=== PATIENT | female | born 1985 | race Caucasian/White ===

== ENCOUNTER → 2017-09-10 | Outpatient (CLI) | payer OTHER ==
[~2017-09-10] MED LIST: DOCU-131 PO; IBUP-1222 PO; OXYC-302 PO
[2017-09-10 13:28] LABS: HEMATOCRIT 40.4 % (34.6-47.8); HEMOGLOBIN 13.7 g/dL (11.7-16.4); WHITE BLOOD COUNT 9.4 x10^3/uL (3.4-10)
[2017-09-10 14:02] LABS: HIV 1&2 ANTIBODY SCREEN Nonreactive (Nonreactive); HIV-1 p24 ANTIGEN Nonreactive (Nonreactive)
== END ==
LOC: LAB 13:09
PROVIDERS: ATTEND Obstetrics & Gynecology Maternal & Fetal Medicine
DX: Z34.81 Encounter for supervision of other normal pregnancy, first trimester (principal)
CPT/HCPCS: 36415; 85025; 86592; 86703; 86762; 86850; 86900; 87086; 87340; 87899; G0435

== ENCOUNTER → 2017-12-13 | Outpatient (CLI) | payer OTHER ==
[2017-12-13 07:39] LABS: BASOPHILS # (AUTO) 0.07 x10^3/uL (0-0.1); BASOPHILS % (AUTO) 1 % (0-1); EOSINOPHILS # (AUTO) 0.16 x10^3/uL (0-0.4); EOSINOPHILS % (AUTO) 2 % (1-7); LYMPHOCYTES # (AUTO) 1.82 x10^3/uL (1-3.4); LYMPHOCYTES % (AUTO) 19 % (22-44); MD NO; MEAN CORPUSCULAR HEMOGLOBIN 30.5 pg (27.0-34.8); MEAN CORPUSCULAR HGB CONC 33.1 g/dL (32.4-35.8); MEAN PLATELET VOLUME 8.4 fL (7.4-10.4); MONOCYTES # (AUTO) 0.49 x10^3/uL (0.2-0.8); MONOCYTES % (AUTO) 5 % (2-9); NEUTROPHILS # (AUTO) 7.16 x10^3/uL (1.8-6.8); NEUTROPHILS % (AUTO) 74 % (42-75); PLATELET COUNT 223 x10^3/uL (130-400); RED BLOOD COUNT 4.48 x10^6/uL (3.82-5.3); RED CELL DISTRIBUTION WIDTH 14.1 % (9.6-15.2)
== END | disposition home or self-care (01) ==
LOC: LAB 07:21
PROVIDERS: ATTEND Obstetrics & Gynecology Maternal & Fetal Medicine
DX: Z34.82 Encounter for supervision of other normal pregnancy, second trimester (principal); Z3A.00 Weeks of gestation of pregnancy not specified
CPT/HCPCS: 36415; 82950; 85025

== ENCOUNTER 2017-12-26 20:53 | Outpatient (CLI) | payer OTHER ==
[~2017-12-26] VITALS: Ht 172.7 cm; Wt 77.3 kg
[2017-12-26 20:56] VITALS: BP 126/89
[2017-12-26] MEDS ORDERED: TERBUTALINE 1 MG/ML, 1ML ONE (21:18)
[2017-12-26] MEDS ORDERED: TERBUTALINE 1 MG/ML, 1ML SQ ONE (21:30)
[2017-12-26] MEDS ORDERED: PREN1TAB60 PO (22:15)
[2017-12-26] MEDS ORDERED: VALA500T4 PO (22:16)
== END 2017-12-26 22:41 | disposition home or self-care (01) ==
LOC: LDOP 20:53
PROVIDERS: ATTEND Obstetrics & Gynecology Maternal & Fetal Medicine
DX: O46.92 Antepartum hemorrhage, unspecified, second trimester (principal); Z3A.27 27 weeks gestation of pregnancy
CPT/HCPCS: 59025; 96372; 99211; J3105; G0463

== ENCOUNTER 2018-03-16 05:32 | Inpatient (IN) | payer OTHER ==
[~2018-03-16] VITALS: Ht 172.7 cm; Wt 87.0 kg
[~2018-03-16 05:32] MED LIST changes: +PREN1TAB60 PO; +VALA500T4 PO
[2018-03-16] MEDS ORDERED: LACTATED RINGERS 1,000 ML IV SCH ×3 (05:37→07:33)
[2018-03-16] MEDS ORDERED: OXYTOCIN 30U/ 0.9% NaCL 500ML 500 ML IV SCH (05:37)
[2018-03-16] MEDS ORDERED: SODIUM CITRATE/CITRIC ACID 30 ML UDC PO ONE (06:00)
[2018-03-16] MEDS ORDERED: METOCLOPRAMIDE 5 MG/ML, 2ML IV ONE (06:00)
[2018-03-16] MEDS ORDERED: LACTATED RINGERS 1,000 ML IVBOLUS ONE (06:00)
[2018-03-16 06:03] LABS: BASOPHILS # (AUTO) 0.07 x10^3/uL (0-0.1); BASOPHILS % (AUTO) 1 % (0-1); EOSINOPHILS # (AUTO) 0.08 x10^3/uL (0-0.4); EOSINOPHILS % (AUTO) 1 % (1-7); LYMPHOCYTES # (AUTO) 2.06 x10^3/uL (1-3.4); LYMPHOCYTES % (AUTO) 26 % (22-44); MD NO; MEAN CORPUSCULAR HEMOGLOBIN 30.9 pg (27.0-34.8); MEAN CORPUSCULAR HGB CONC 33.9 g/dL (32.4-35.8); MEAN CORPUSCULAR VOLUME 91.2 fL (80-100); MEAN PLATELET VOLUME 9.3 fL (7.4-10.4); MONOCYTES % (AUTO) 8 % (2-9); NEUTROPHILS # (AUTO) 4.99 x10^3/uL (1.8-6.8); NEUTROPHILS % (AUTO) 64 % (42-75); PLATELET COUNT 181 x10^3/uL (130-400); RED CELL DISTRIBUTION WIDTH 13.8 % (9.6-15.2)
[2018-03-16] MEDS ORDERED: METOCLOPRAMIDE 5 MG/ML, 2ML ONE (06:37)
[2018-03-16] MEDS ORDERED: OXYTOCIN 30U/ 0.9% NaCL 500ML 500 ML ONE (06:37)
[2018-03-16] MEDS ORDERED: FENTANYL PF 100 MCG/2ML ONE (07:12)
[2018-03-16] MEDS ORDERED: ONDANSETRON 2MG/ML, 2ML ONE (07:12)
[2018-03-16] MEDS ORDERED: CEFAZOLIN 1,000 MG ONE (07:12)
[2018-03-16] MEDS ORDERED: OXYTOCIN 10 UNITS/ML, 1ML ONE (07:12)
[2018-03-16] MEDS ORDERED: HYDROmorphone 2 MG/ML, 1ML ONE (07:13)
[2018-03-16] MEDS ORDERED: SODIUM CHLORIDE 0.9% PF 10ML ONE ×2 (07:13)
[2018-03-16] MEDS: OXYTOCIN 30U/ 0.9% NaCL 500ML 500 ML IV SCH ×2 (07:33→17:33)
[2018-03-16] MEDS: LACTATED RINGERS 1,000 ML IV SCH ×2 (07:33→17:33)
[2018-03-16] MEDS ORDERED: CARBOPROST TROMETHAMINE 250 MCG/ML, 1ML IM PRN (08:00)
[2018-03-16] MEDS ORDERED: DIPH,PERTUSS(ACELL),TET VAC/PF NC IM-VACC PRN (08:00)
[2018-03-16] MEDS ORDERED: MISOPROSTOL 200 MCG TABLET PR PRN (08:00)
[2018-03-16] MEDS ORDERED: MEASLES,MUMPS&RUBELLA VACC/PF 0.5 ML SQ-VACC PRN (08:00)
[2018-03-16] MEDS ORDERED: ACETAMINOPHEN 325 MG TABLET PO PRN (08:00)
[2018-03-16] MEDS ORDERED: morphine SULFATE 10 MG/ML, 1ML IVPush PRN ×2 (08:00)
[2018-03-16] MEDS ORDERED: ONDANSETRON 2MG/ML, 2ML IV PRN (08:00)
[2018-03-16] MEDS ORDERED: METHYLERGONOVINE 0.2 MG/ML IM PRN (08:00)
[2018-03-16] MEDS: PRENATAL VIT/IRON/FA 1 EACH TABLET PO SCH (09:00)
[2018-03-16] MEDS ORDERED: KETOROLAC 30 MG/1 ML ONE (09:58)
[2018-03-16] MEDS ORDERED: OXYcodone/APAP 5/325MG TABLET ONE (09:58)
[2018-03-16] MEDS: KETOROLAC 30 MG/1 ML IV SCH ×3 (10:00→22:03)
[2018-03-16] MEDS: OXYcodone/APAP 5/325MG TABLET PO PRN (10:00)
[2018-03-16 11:00] VITALS: BP 114/72
[2018-03-16] MEDS: OXYcodone IR 5MG TABLET PO PRN ×2 (14:34→19:22)
[2018-03-16 16:00] VITALS: BP 126/86
[2018-03-16 16:24] LABS: BASOPHILS # (AUTO) 0.07 x10^3/uL (0-0.1); BASOPHILS % (AUTO) 1 % (0-1); EOSINOPHILS # (AUTO) 0.02 x10^3/uL (0-0.4); EOSINOPHILS % (AUTO) 0 % (1-7); LYMPHOCYTES # (AUTO) 1.83 x10^3/uL (1-3.4); LYMPHOCYTES % (AUTO) 14 % (22-44); MD NO; MEAN CORPUSCULAR HEMOGLOBIN 30.7 pg (27.0-34.8); MEAN CORPUSCULAR VOLUME 93.2 fL (80-100); MEAN PLATELET VOLUME 9.4 fL (7.4-10.4); MONOCYTES # (AUTO) 0.83 x10^3/uL (0.2-0.8); MONOCYTES % (AUTO) 6 % (2-9); NEUTROPHILS # (AUTO) 10.43 x10^3/uL (1.8-6.8); NEUTROPHILS % (AUTO) 79 % (42-75); PLATELET COUNT 163 x10^3/uL (130-400); RED BLOOD COUNT 3.92 x10^6/uL (3.82-5.3); RED CELL DISTRIBUTION WIDTH 13.7 % (9.6-15.2)
[2018-03-16 19:20] VITALS: BP 108/67
[2018-03-16] MEDS: DOCUSATE 100 MG CAPSULE PO PRN (19:22)
[2018-03-17] MEDS: OXYcodone/APAP 5/325MG TABLET PO PRN ×3 (00:24→17:47)
[2018-03-17 00:27] VITALS: BP 116/70
[2018-03-17] MEDS: LACTATED RINGERS 1,000 ML IV SCH ×3 (03:33→23:33)
[2018-03-17] MEDS: OXYTOCIN 30U/ 0.9% NaCL 500ML 500 ML IV SCH ×3 (03:33→23:33)
[2018-03-17] MEDS: SIMETHICONE 80 MG CHEW TAB PO PRN ×4 (03:59→17:48)
[2018-03-17] MEDS: OXYcodone IR 5MG TABLET PO PRN (03:59)
[2018-03-17] MEDS: KETOROLAC 30 MG/1 ML IV SCH ×3 (03:59→15:16)
[2018-03-17 04:00] VITALS: BP 117/74
[2018-03-17 07:45] VITALS: BP 117/79
[2018-03-17] MEDS ORDERED: IBUPROFEN 600 MG TABLET ONE ×3 (09:13→20:41)
[2018-03-17] MEDS: PRENATAL VIT/IRON/FA 1 EACH TABLET PO SCH (09:16)
[2018-03-17] MEDS: DOCUSATE 100 MG CAPSULE PO PRN ×2 (09:17→20:54)
[2018-03-17 20:45] VITALS: BP 111/72
[2018-03-17] MEDS: IBUPROFEN 600 MG TABLET PO PRN (20:54)
[2018-03-18] MEDS: OXYcodone/APAP 5/325MG TABLET PO PRN ×2 (02:00→08:47)
[2018-03-18] MEDS: IBUPROFEN 600 MG TABLET PO PRN ×2 (03:08→08:47)
[2018-03-18 07:45] VITALS: BP 118/75
[2018-03-18] MEDS ORDERED: IBUPROFEN 600 MG TABLET PO PRN ×2 (08:00→09:30)
[2018-03-18] MEDS: DOCUSATE 100 MG CAPSULE PO PRN (08:47)
[2018-03-18] MEDS: PRENATAL VIT/IRON/FA 1 EACH TABLET PO SCH (08:48)
[2018-03-18] MEDS ORDERED: IBUP-1222 PO (09:26)
[2018-03-18] MEDS ORDERED: OXYC-302 PO (09:26)
[2018-03-18] MEDS: OXYTOCIN 30U/ 0.9% NaCL 500ML 500 ML IV SCH (09:33)
[2018-03-18] MEDS: LACTATED RINGERS 1,000 ML IV SCH (09:33)
== END 2018-03-18 10:55 | disposition home or self-care (01) | DRG 766 ==
LOC: LDIP 05:32 → 2NW 10:32
PROVIDERS: ADMIT Obstetrics & Gynecology Maternal & Fetal Medicine; ATTEND Obstetrics & Gynecology Maternal & Fetal Medicine
PROC: 10D00Z1 Extraction of Products of Conception, Low, Open Approach (ICD-10-PCS; principal; 2018-03-16)
DX: O34.211 Maternal care for low transverse scar from previous cesarean delivery (principal); Z37.0 Single live birth; Z3A.39 39 weeks gestation of pregnancy
CPT/HCPCS: 36415; 85025; 86850; 86900; J0690; J1170; J1885; J2405; J3010; J2270; J2590; J2765; J7120

== ENCOUNTER → 2019-03-31 | Outpatient (CLI) | payer OTHER ==
[2019-03-31 08:24] LABS: BASOPHILS # (AUTO) 0.05 x10^3/uL (0-0.1); BASOPHILS % (AUTO) 1 % (0-1); EOSINOPHILS # (AUTO) 0.11 x10^3/uL (0-0.4); EOSINOPHILS % (AUTO) 3 % (1-7); LYMPHOCYTES # (AUTO) 1.46 x10^3/uL (1-3.4); LYMPHOCYTES % (AUTO) 36 % (22-44); MD NO; MEAN CORPUSCULAR HEMOGLOBIN 29.7 pg (27.0-34.8); MEAN CORPUSCULAR HGB CONC 32.8 g/dL (32.4-35.8); MEAN CORPUSCULAR VOLUME 90.6 fL (80-100); MEAN PLATELET VOLUME 8.5 fL (7.4-10.4); MONOCYTES # (AUTO) 0.48 x10^3/uL (0.2-0.8); MONOCYTES % (AUTO) 12 % (2-9); NEUTROPHILS # (AUTO) 1.94 x10^3/uL (1.8-6.8); NEUTROPHILS % (AUTO) 48 % (42-75); PLATELET COUNT 225 x10^3/uL (130-400); RED BLOOD COUNT 4.39 x10^6/uL (3.82-5.3); RED CELL DISTRIBUTION WIDTH 13.5 % (9.6-15.2)
== END | disposition home or self-care (01) ==
LOC: LAB 07:06
PROVIDERS: ATTEND Obstetrics & Gynecology Maternal & Fetal Medicine
DX: Z34.81 Encounter for supervision of other normal pregnancy, first trimester (principal)
CPT/HCPCS: 36415; 82950; 85025; 86592

== ENCOUNTER → 2021-05-22 | Outpatient (CLI) | payer OTHER ==
[~2021-05-22] MED LIST changes: +CETI10TA76 PO; +FLUO10TA PO; +FLUT9.9S NS; +LEMON BALM PO; +NORE1TAB11 PO; -OXYC-302 PO; +OXYC1TAB14 PO
[2021-05-22 14:41] LABS: ANION GAP 6 mmol/L (5-15); CALCIUM 8.8 mg/dL (8.5-10.1); CHLORIDE 110 mmol/L (98-107); CREATININE 0.79 mg/dL (0.55-1.02)
[2021-05-22 14:57] LABS: MEAN CORPUSCULAR HEMOGLOBIN 29.4 pg (27.0-34.8); MEAN CORPUSCULAR HGB CONC 32.4 g/dL (32.4-35.8); MEAN PLATELET VOLUME 8.9 fL (7.4-10.4); PLATELET COUNT 258 x10^3/uL (130-400); RED BLOOD COUNT 4.77 x10^6/uL (3.82-5.3); RED CELL DISTRIBUTION WIDTH 13.3 % (9.6-15.2)
[2021-05-22 14:58] LABS: BASOPHILS % (AUTO) 1 % (0-1); EOSINOPHILS % (AUTO) 3 % (1-7); LYMPHOCYTES % (AUTO) 27 % (22-44); MONOCYTES % (AUTO) 9 % (2-9); NEUTROPHILS % (AUTO) 60 % (42-75)
== END | disposition home or self-care (01) ==
LOC: STAR 13:49
PROVIDERS: ATTEND Obstetrics & Gynecology Maternal & Fetal Medicine
DX: Z01.818 Encounter for other preprocedural examination (principal); N92.0 Excessive and frequent menstruation with regular cycle
CPT/HCPCS: 36415; 80048; 84702; 85025

== ENCOUNTER 2021-05-28 13:31 | Day surgery (SDC) | payer OTHER ==
[~2021-05-28] VITALS: Ht 175.3 cm; Wt 73.2 kg
[2021-05-28 14:08] VITALS: BP 137/89
[2021-05-28 14:28] LABS: HCG UR SG 1.016 (1.003-1.030)
[2021-05-28] MEDS ORDERED: CHLORHEXIDINE 15 ML UDC PO ONE (14:30)
[2021-05-28] MEDS ORDERED: LACTATED RINGERS 1,000 ML IV SCH (15:00)
[2021-05-28] MEDS ORDERED: BUPIVACAINE/PF 0.25% ONE (15:24)
[2021-05-28] MEDS ORDERED: MIDAZOLAM 1 MG/ML, 2ML ONE (15:32)
[2021-05-28] MEDS ORDERED: FENTANYL PF 250 MCG/5ML ONE (15:33)
[2021-05-28] MEDS ORDERED: ROCURONIUM 10MG/ML,5ML ONE (15:34)
[2021-05-28] MEDS ORDERED: DEXAMETHASONE 4 MG/ML, 1ML ONE (15:34)
[2021-05-28] MEDS ORDERED: PROPOFOL 10 MG/ML, 20ML ONE (15:34)
[2021-05-28] MEDS ORDERED: BUPIVACAINE 0.25% INFIL ONE (15:58)
[2021-05-28] MEDS ORDERED: NEOSPORIN OINT, 15GM ONE (16:17)
[2021-05-28] MEDS ORDERED: hydrALAzine 20 MG/ML, 1ML IV PRN (17:00)
[2021-05-28] MEDS ORDERED: DIAZEPAM 5 MG/ML, 2ML IVPush PRN (17:00)
[2021-05-28] MEDS ORDERED: EPHEDRINE 50 MG/ML, 1ML IVPush PRN (17:00)
[2021-05-28] MEDS ORDERED: PROMETHAZINE 25 MG/ML, 1ML IVPush PRN (17:00)
[2021-05-28] MEDS ORDERED: ACETAMINOPHEN 325 MG TABLET PO PRN (17:00)
[2021-05-28] MEDS ORDERED: ALBUTEROL SULFATE 2.5 MG/3 ML NPPB PRN (17:00)
[2021-05-28] MEDS ORDERED: PROMETHAZINE 12.5 MG SUPP PR PRN (17:00)
[2021-05-28] MEDS ORDERED: LORazepam 2 MG/ML, 1ML IVPush PRN (17:00)
[2021-05-28] MEDS ORDERED: DIPHENHYDRAMINE 50 MG/ML, 1ML IVPush PRN ×2 (17:00)
[2021-05-28] MEDS ORDERED: MEPERIDINE/PF 25MG/0.5ML IVPush PRN (17:00)
[2021-05-28] MEDS ORDERED: LABETALOL 5MG/ML, 20ML IV PRN (17:00)
[2021-05-28] MEDS ORDERED: MIDAZOLAM 1 MG/ML, 2ML IV PRN (17:00)
[2021-05-28] MEDS ORDERED: ONDANSETRON 2MG/ML, 2ML IVPush PRN (17:00)
[2021-05-28] MEDS ORDERED: FENTANYL PF 100 MCG/2ML ONE ×2 (17:07→17:42)
[2021-05-28] MEDS: FENTANYL PF 100 MCG/2ML IV PRN ×3 (17:08→17:20)
[2021-05-28] MEDS ORDERED: ACETAMINOPHEN 650 MG/20.3 ML UDC ONE (17:30)
[2021-05-28] MEDS ORDERED: OXYcodone 5 MG/5 ML ORAL.SOL UDC ONE ×2 (17:30→17:43)
[2021-05-28] MEDS: OXYcodone 5 MG/5 ML ORAL.SOL UDC PO PRN ×2 (17:35→17:45)
[2021-05-28] MEDS ORDERED: HYDROmorphone 2 MG/ML, 1ML ONE (17:42)
[2021-05-28] MEDS: HYDROmorphone 1 MG/ML, 1ML INJ IVPush PRN ×2 (17:55→18:10)
[2021-05-28] MEDS ORDERED: METHOCARBAMOL 1,000 MG in DEXTROSE 5% 100 ML IV ONE (18:00)
[2021-05-28] MEDS ORDERED: PROMETHAZINE 25 MG/ML, 1ML ONE (19:25)
== END 2021-05-28 20:10 | disposition home or self-care (01) ==
LOC: OR 13:31
PROVIDERS: ATTEND Obstetrics & Gynecology Maternal & Fetal Medicine
DX: Z30.2 Encounter for sterilization (principal); N92.0 Excessive and frequent menstruation with regular cycle; Z88.8 Allergy status to other drugs, medicaments and biological substances
CPT/HCPCS: 58353; 58661; 81025; 88302; J1100; J1170; J2250; J2550; J2704; J2800; J3010; J7120